=== PATIENT | female | born 2005 | race Caucasian/White ===

== ENCOUNTER 2024-01-13 21:12 | Emergency (ER) | payer OTHER ==
[2024-01-13 21:20] VITALS: BP 133/84; PULSE 80; RESP 18; TEMP 98.6; BMI 31.8
[2024-01-13] MEDS: DIPHTH,PERTUSS(ACELL),TET 0.5 ML DISP.SYRIN IM ONE (22:57)
[2024-01-13] MEDS ORDERED: DIPHTH,PERTUSS(ACELL),TET 0.5 ML DISP.SYRIN IM ONE (22:57)
[2024-01-14 00:32] LABS: HIV INTERPRETATION NEGATIVE (NEGATIVE)
== END 2024-01-14 00:08 | disposition home or self-care (01) ==
LOC: JERFT 21:12
PROC: 3E0234Z Introduction of Serum, Toxoid and Vaccine into Muscle, Percutaneous Approach (ICD-10-PCS; principal; 2024-01-13)
DX: M79.671 Pain in right foot (principal); Z23 Encounter for immunization
CPT/HCPCS: 36415; 86803; 87389; 90471; 90715; 99284-25